=== PATIENT | female | born 2000 | race Caucasian/White ===

== ENCOUNTER 2021-11-17 07:34 | Emergency (ER) | payer OTHER ==
[~2021-11-17] VITALS: Ht 167.6 cm; Wt 90.9 kg
[2021-11-17] MEDS ORDERED: PERTUSS(ACELL),DIPH,TET VAC/PF 0.5 ML SYRINGE IM. ONE (09:15)
[2021-11-17] MEDS ORDERED: LIDOCAINE 1% 10 ML VIAL SQ ONE (09:15)
[2021-11-17] MEDS ORDERED: NEOMYCIN/BACITRACIN/POLYMYXIN B OINTMENT PACKET TP ONE (09:15)
[2021-11-17] MEDS ORDERED: CeFAZolin 2 GM/DEXTROSE 50 ML IV ONE (10:15)
[2021-11-17 11:40] VITALS: BP 137/83
[2021-11-17] MEDS ORDERED: HYDROCODONE/ACETAMINOPHEN 5-325 MG TABLET PO ONE (12:00)
[2021-11-17] MEDS ORDERED: HYDR-4723 PO (12:17)
[2021-11-17] MEDS ORDERED: CEPH-558 PO (12:17)
[2021-11-17] MEDS ORDERED: IBUP-1554 PO (12:17)
== END 2021-11-17 12:30 | disposition home or self-care (01) ==
LOC: EMS 07:40
DX: S61.012A Laceration without foreign body of left thumb without damage to nail, initial encounter (principal); W27.8XXA Contact with other nonpowered hand tool, initial encounter; Y93.89 Activity, other specified; Y92.89 Other specified places as the place of occurrence of the external cause; Y99.0 Civilian activity done for income or pay
CPT/HCPCS: 99284; 96365; 73140; 90715; 90471; 12002; J3490; J0690; 29280